=== PATIENT | female | born 1940 | race Caucasian/White ===

== ENCOUNTER → 2016-09-18 | Outpatient (CLI) | payer OTHER | END | disposition home or self-care (01) | LOC: PCVCCLINIC 14:35 | PROVIDERS: ATTEND Internal Medicine Cardiovascular Disease | DX: I10 Essential (primary) hypertension (principal); E78.00 Pure hypercholesterolemia, unspecified; R94.31 Abnormal electrocardiogram [ECG] [EKG]; Z85.43 Personal history of malignant neoplasm of ovary; Z96.653 Presence of artificial knee joint, bilateral; Z89.421 Acquired absence of other right toe(s); Z87.891 Personal history of nicotine dependence; Z79.899 Other long term (current) drug therapy | CPT/HCPCS: 80061; 93005; G0463 ==

== ENCOUNTER → 2016-10-01 | Outpatient (CLI) | payer OTHER ==
[~2016-10-01] MED LIST: REGADENOSON 0.4 MG/5 ML DISP.SYRIN. IV ONE
--- NOTE | 2016-10-01 11:25 | PCVCIMAG ---
APPROVED REPORT Study performed: 10/01/2016 08:03:53 EXAM: Comprehensive 2D, Doppler, and color-flow Echocardiogram Status: routine Other Information Study Quality: Fair Indications Hypertension, Hyperlipidemia. Abnormal EKG. SOA 2D Dimensions LVEF(%): 76.17 (>50%) IVSd: 11.52 (7-11mm)LVOT Diam: 19.66 (18-24mm) LVDd: 36.90 mm LVPWs: 26.87 mm PWd: 11.77 (7-11mm)Ascending Ao: 32.89 (22-36mm) LVDs: 20.62 (25-40mm) Left Atrium: 31.30 (27-40mm) Aortic Root: 25.85 mm LV Single Plane 4CH: 54.54 % Harrell's LVEF: 76.17 % Volumes Left Atrial Volume (Systole) Single Plane 4CH: 41.43 mLSingle Plane 2CH: 29.87 mL LA ESV Index: 28.00 mL/m2 Aortic Valve AoV Peak Dave.: 1.31 m/s AO Peak Gr.: 6.86 mmHgLVOT Max P.70 mmHg LVOT Max V: 0.96 m/s FRANCESCA Vmax: 2.23 cm2 Mitral Valve E/A Ratio: 0.6 MV Decel. Time: 257.96 ms MV E Max Dave.: 0.61 m/s MV A Dave.: 0.95 m/s IVRT: 134.95 ms Pulmonary Valve PV Peak Gr.: 2.70 mmHg Pulmonary Vein P Vein S: 0.57 m/sP Vein A: 0.34 m/s P Vein D: 0.40 m/sP Vein A Dur.: 83.0 msec P Vein S/D Ratio: 1.42 Tricuspid Valve TR Peak Dave.: 2.62 m/s TR Peak Gr.: 27.43 mmHg Left Ventricle The left ventricle is normal size. There is normal LV segmental wall motion. Mild concentric left ventricular hypertrophy. Left ventricular systolic function is normal. The left ventricular ejection fraction is within the normal range. LVEF is 60-65%. The left ventricular diastolic function is normal. Right Ventricle The right ventricle is normal size. The right ventricular systolic function is normal. Atria Left atrium is dilated. Right atrium is dilated. Aortic Valve The aortic valve is normal in structure. No aortic regurgitation is present. There is no aortic valvular stenosis. Mitral Valve The mitral valve is normal in structure. Trace mitral regurgitation. No evidence of mitral valve stenosis. Tricuspid Valve The tricuspid valve is normal in structure. Trace tricuspid regurgitation. Pulmonary artery pressure is 35mmhg. Pulmonic Valve The pulmonary valve is normal in structure. There is no pulmonic valvular regurgitation. Great Vessels The aortic root is normal in size. IVC is normal in size and collapses with >50% inspiration Pericardium There is no pericardial effusion. <Conclusion> Mild concentric left ventricular hypertrophy. Left ventricular systolic function is normal. The left ventricular ejection fraction is within the normal range. LVEF is 60-65%. The right ventricle is normal size. Left atrium is dilated. Right atrium is dilated. The aortic valve is normal in structure. Trace mitral regurgitation. Trace tricuspid regurgitation. Pulmonary artery pressure is 35mmhg. There is no pericardial effusion.
--- NOTE | 2016-10-01 18:08 | PCVCIMAG ---
APPROVED REPORT Exam: Nuclear Stress Test Indication: Chest pain , Abnormal EKG, Dyspnea Patient Location: Out-Patient NM Tech:BLANKA Ruffin Ht: 4 ft 11 in Wt: 130 lbs BSA: 1.54 m2 HR: 61 bpm BP: 160/81 mmHg BMI: 26.2 Rhythm: Sinus Bradycardia Medical History Medical History: Hyperlipidemia, HTN Medications: Hydroxyzine, Zocor Allergies: No known drug allergies Pretest Chest Pain Characteristics: No chest pain Exercise History: Sedentary NM EXAM: Myocardial Perfusion REST/STRESS Imaging Protocol: Rest Tc-99m/Stress Tc-99m 1 day Resting Data Rest SPECT myocardial perfusion imaging was performed in supine position 45 minutes following the intravenous injection of 10.9 mCi of Tc-99m Sestamibi. Time of rest injection: 844 Date: 10/01/2016 Pharmacologic Stress Pharmacologic stress test was performed by injecting Regadenoson 0.4 mg IV push followed by the intravenous injection of 32.8 mCi of Tc-99m Sestamibi. Time of stress injection: 1014 Date: 10/01/2016 Administration Route: IV Administration Site: Right Fore-Arm Gated Stress SPECT was performed 45 minutes after stress injection. The images were gated to evaluate regional wall motion and calculate left ventricular ejection fraction. Study Quality Study: Good Study Data Post stress, the left ventricular ejection was 81%.. SSS: 0 SRS: 0 SDS: 0 TID = 0.65. Perfusion No evidence of stress induced ischemia or prior myocardial infarction. Wall Motion Normal left ventricular size and function with no regional wall motion abnormalities. Nuclear Conclusion No evidence of stress induced ischemia or prior myocardial infarction. Normal left ventricular size and function with no regional wall motion abnormalities. Post stress, the left ventricular ejection was 81%.. No prior study available for comparison. Interpreted by: Josh Ndiaye MD Electronically Approved: 10/01/2016 17:21:23 Stress Test Details Stress Test: Pharmacologic stress testing performed using 0.4 mg of regadenoson per 5 mL given IV over 10 seconds. Reason for pharmacologic stress test: physical limitation. HR Resting HR: 61 bpmMax Heart Rate (APMHR): 145 bpm Max HR Achieved: 92 bpmTarget HR (85% APMHR): 123 bpm % of APMHR: 63 Recovery HR: 78 bpm BP Resting BP: 160/81 mmHg Max BP: 151/77 mmHg Recovery BP: 136/69 mmHg ECG Resting ECG: Sinus Bradycardia Stress ECG: Sinus Rhythm, Sinus Rhythm, NSSTT changes Recovery ECG: Sinus Rhythm Clinical Reason for Termination: Completed protocol Stress Symptoms: Abdominal discomfort, Headache Symptoms resolved during recovery.
== END | disposition home or self-care (01) ==
LOC: PCVCIMAG 07:42
PROVIDERS: ATTEND Internal Medicine Cardiovascular Disease
DX: I08.1 Rheumatic disorders of both mitral and tricuspid valves (principal); R94.31 Abnormal electrocardiogram [ECG] [EKG]; I10 Essential (primary) hypertension; E78.5 Hyperlipidemia, unspecified; E78.00 Pure hypercholesterolemia, unspecified; F41.9 Anxiety disorder, unspecified
CPT/HCPCS: 78452; 93017; 93306; A9500; J2785